=== PATIENT | female | born 1970 | race Caucasian/White ===

== ENCOUNTER 2020-06-17 08:12 | Inpatient (IN) | payer BC ==
[~2020-06-17 08:12] MED LIST: Bupivacaine 0.5%/EPINEPHrine 1:200,000 50 ML MDV ONE
[2020-06-17] MEDS ORDERED: Acetaminophen 500 MG Tab PO ONE (08:19)
[2020-06-17] MEDS ORDERED: Scopolamine 1.5 MG Transdermal Patch TRDERM SCH (08:20)
[2020-06-17] MEDS ORDERED: Neostigmine Methylsulfate 1 MG/ML 5 ML Syringe ONE (08:56)
[2020-06-17] MEDS ORDERED: Ondansetron 4 MG/2 ML SDV ONE (08:56)
[2020-06-17] MEDS ORDERED: Succinylcholine 200 MG/10 ML MDV ONE (08:56)
[2020-06-17] MEDS ORDERED: fentaNYL 250 MCG/5 ML SDV ONE ×2 (08:56→11:20)
[2020-06-17] MEDS ORDERED: Rocuronium 50 MG/5 ML Vial ONE (08:56)
[2020-06-17] MEDS ORDERED: Dexamethasone 4 MG/ML SDV ONE (08:56)
[2020-06-17] MEDS ORDERED: Glycopyrrolate 0.2 MG/ML 5 ML MDV ONE (08:56)
[2020-06-17] MEDS ORDERED: Propofol 200 MG/20 ML SDV ONE (08:56)
[2020-06-17] MEDS ORDERED: Celecoxib 200 MG Cap PO ONE (09:00)
[2020-06-17] MEDS: Dextrose 5%-Lactated Ringers 1,000 ML IV SCH ×3 (09:27→14:54)
[2020-06-17] MEDS: cefOXitin 2 GM Vial ONE ×2 (09:52→11:56)
[2020-06-17] MEDS ORDERED: cefOXitin 2 GM in Sodium Chloride 0.9% 50 ML IV ONE (10:00)
[2020-06-17] MEDS ORDERED: Lactated Ringers 1,000 ML ONE (10:24)
[2020-06-17] MEDS ORDERED: Ketamine 50 MG in Sodium Chloride 0.9% 49.5 ML IV SCH (10:30)
[2020-06-17] MEDS ORDERED: Magnesium Sulfate 3 GM in Sodium Chloride 0.9% 100 ML IV SCH (10:30)
[2020-06-17] MEDS ORDERED: Ketamine 500 MG/5 ML MDV IV SCH (10:30)
[2020-06-17] MEDS ORDERED: Labetalol 20 MG/4 ML Syringe ONE (11:50)
[2020-06-17] MEDS ORDERED: Naloxone 0.4 MG/ML SDV ONE (12:22)
[2020-06-17] MEDS ORDERED: Albuterol/Ipratropium 3.0-0.5 MG/3 ML Neb Soln NEB ONE (12:24)
[2020-06-17] MEDS ORDERED: hydrOXYzine HCL 100 MG/2 ML SDV IM ONE (12:29)
[2020-06-17] MEDS ORDERED: fentaNYL 100 MCG/2 ML SDV IVPUSH ONE ×2 (12:29→12:57)
[2020-06-17] MEDS ORDERED: Midazolam 1 MG/ML 2 ML SDV IVPUSH ONE (13:35)
[2020-06-17] MEDS ORDERED: Calcium Gluconate 10% 1 GM/10 ML SDV IVPUSH PRN (15:00)
[2020-06-17] MEDS ORDERED: Labetalol 20 MG/4 ML Syringe IVPUSH PRN (15:00)
[2020-06-17] MEDS ORDERED: hydrOXYzine HCL 100 MG/2 ML SDV IM PRN (15:00)
[2020-06-17] MEDS ORDERED: 50% Dextrose in Water 50 ML Syringe IVPUSH PRN (15:00)
[2020-06-17] MEDS ORDERED: Glucagon,Human Recombinant 1 MG Vial IM PRN (15:00)
[2020-06-17] MEDS ORDERED: Ondansetron 4 MG/2 ML SDV IVPUSH PRN (15:00)
[2020-06-17] MEDS ORDERED: Acetaminophen 500 MG Tab PO PRN (15:00)
[2020-06-17] MEDS ORDERED: Metoclopramide 10 MG/2 ML SDV IVPUSH PRN (15:00)
[2020-06-17] MEDS ORDERED: Insulin Lispro 100 Unit/ML 3 ML KwikPen SUBCUT PRN (15:00)
[2020-06-17] MEDS ORDERED: Albuterol/Ipratropium 3.0-0.5 MG/3 ML Neb Soln INH PRN (15:00)
[2020-06-17] MEDS ORDERED: HYDROmorphone 0.5 MG/0.5 ML Syringe IVPUSH PRN (15:00)
[2020-06-17] MEDS: Albuterol/Ipratropium 3.0-0.5 MG/3 ML Neb Soln INH SCH ×2 (15:09→20:28)
[2020-06-17] MEDS: HYDROmorphone 1 MG/ML Syringe IV PRN ×3 (15:35→23:19)
[2020-06-17] MEDS ORDERED: MVI, Adult with Vitamin K 10 ML, Thiamine 200 MG, Chromium/Copper/Mang/Selen/Zn 1 ML in... IV SCH ×4 (16:00)
[2020-06-17] MEDS ORDERED: Pantoprazole 40 MG Vial IVPUSH SCH (16:00)
[2020-06-17] MEDS: cefOXitin 2 GM in Sodium Chloride 0.9% 50 ML IV SCH ×2 (16:48→21:14)
[2020-06-17] MEDS: Acetaminophen 500 MG Tab PO SCH (16:51)
[2020-06-17] MEDS: Docusate Sodium 100 MG Cap PO SCH (20:27)
[2020-06-17] MEDS: Heparin Sodium 5,000 Units/ML Vial SUBCUT SCH (20:28)
[2020-06-18] MEDS: Dextrose 5%-Lactated Ringers 1,000 ML IV SCH ×3 (00:02→14:13)
[2020-06-18] MEDS: Acetaminophen 500 MG Tab PO SCH ×3 (00:02→15:55)
[2020-06-18] MEDS ORDERED: Iopamidol 612 MG/ML 50 ML SDV PO ONE (02:19)
[2020-06-18] MEDS: HYDROmorphone 1 MG/ML Syringe IV PRN (03:48)
[2020-06-18] MEDS: cefOXitin 2 GM in Sodium Chloride 0.9% 50 ML IV SCH (03:52)
[2020-06-18] MEDS ORDERED: Ondansetron 4 MG Tab.DIS PO PRN (07:26)
[2020-06-18] MEDS ORDERED: Benzocaine/Cetylpyridinium/Menthol Lozenge MUCMEM PRN (07:29)
[2020-06-18] MEDS ORDERED: hydrOXYzine HCl 25 MG Tab PO PRN (07:29)
[2020-06-18] MEDS ORDERED: Albuterol 8 GM Inhaler INH PRN (07:30)
[2020-06-18] MEDS ORDERED: SUMAtriptan 50 MG Tab PO PRN (07:30)
[2020-06-18] MEDS: Albuterol/Ipratropium 3.0-0.5 MG/3 ML Neb Soln INH SCH ×4 (07:36→20:21)
[2020-06-18] MEDS: oxyCODONE 5 MG Tab PO PRN (07:57)
[2020-06-18] MEDS: Heparin Sodium 5,000 Units/ML Vial SUBCUT SCH ×2 (08:01→20:18)
[2020-06-18] MEDS: Loratadine 10 MG Tab PO SCH (08:02)
[2020-06-18] MEDS: Docusate Sodium 100 MG Cap PO SCH ×2 (08:02→20:21)
[2020-06-18] MEDS: FLUoxetine 20 MG Cap PO SCH (08:02)
[2020-06-18] MEDS: Celecoxib 200 MG Cap PO SCH ×2 (08:02→20:21)
[2020-06-18] MEDS: SCOPOLAMINE PATCH CHECK TOP SCH (08:03)
--- NOTE | 2020-06-18 08:57 | PN ---
DATE OF SERVICE: 06/18/2020 SUBJECTIVE: Martha reports her pain is controlled. She has received 2 doses of IV Dilaudid. Reports of severe sore throat thought to be from intubation. Blood sugars have been 194, 207, 133 and 145. Upper GI this morning was normal. Oral intake 180. Urine output recorded was 200. MILLER drain put out 190 of a light red drainage. REVIEW OF SYSTEMS: Remainder of review of systems negative for any pertinent positives and negatives. OBJECTIVE: GENERAL: Martha Perez is a pleasant 50-year-old female, alert and orientated. VITAL SIGNS: TPR at 0521 is 98.9, 93, 18. Blood pressure 116/82. HEENT: Negative. NECK: Supple. HEART: Regular rate and rhythm. LUNGS: Clear. ABDOMEN: Abdominal binder is on. Dressings dry and intact. MILLER drain as above. EXTREMITIES: SCDs are on and there is no peripheral edema. ASSESSMENT: Laparoscopic sleeve gastrectomy, liver biopsy, repair of diaphragmatic hernia with mesh and excision of mediastinal lipoma for morbid obesity, hepatomegaly, large paraesophageal diaphragmatic hernia, and mediastinal lipoma. PLAN: 1. Cepacol lozenges at bedside 1 every 2 hours p.r.n. sore throat. 2. Decrease IV to 100 mL per hour at 1400. 3. Step 2 gastric bypass diet with no cereal. 4. May shower. 5. 3 med cups at bedside to drink 1 every 20 minutes or 3 per hour and record. 6. Discontinue Accu-Cheks. 7. Atarax 25 mg p.o. q.4 hours p.r.n. pain. 8. Prozac 40 mg p.o. daily. 9. Claritin 10 mg p.o. daily. 10.Imitrex 50 mg p.o. daily p.r.n. migraine headache. 11.Continue use of incentive spirometer. 12.We will evaluate p.r.n. or in a.m. Peri De Guzman PA-C /[id number]
--- NOTE | 2020-06-18 08:59 | CR ---
[facility] HISTORY: Postbariatric surgery FINDINGS: Patient swallowed water-soluble contrast. Upright views of the abdomen show no evidence of extravasation or obstruction. There is a surgical drain in the left upper quadrant. IMPRESSION: Status post bariatric surgery No extravasation or obstruction seen
[2020-06-18] MEDS ORDERED: FLUoxetine 20 MG Cap PO SCH (09:00)
[2020-06-18] MEDS ORDERED: Non-Formulary Medication 1 Each (Loratadine [Claritin] 10 MG) PO SCH (09:00)
[2020-06-18] MEDS: Cyclobenzaprine 10 MG Tab PO PRN (09:08)
[2020-06-18 11:00] LABS: HEMOGLOBIN A1C 5.5 % (4.5-6.2)
[2020-06-18] MEDS ORDERED: Lidocaine 2% Viscous Solution 15 ML Cup PO PRN (11:11)
[2020-06-18] MEDS: HYDROmorphone 0.5 MG/0.5 ML Syringe IVPUSH PRN ×3 (11:17→17:22)
[2020-06-18] MEDS: Pantoprazole 40 MG Delayed-Release Granules 1 Packet PO SCH (15:54)
[2020-06-18] MEDS: MVI, Adult with Vitamin K 10 ML, Thiamine 200 MG, Chromium/Copper/Mang/Selen/Zn 1 ML in... IV SCH ×4 (15:54)
[2020-06-18] MEDS: diphenhydrAMINE 50 MG/ML SDV IVPUSH PRN (20:17)
[2020-06-18] MEDS: HYDROmorphone 1 MG/ML Syringe IVPUSH PRN ×2 (20:17→23:22)
[2020-06-19] MEDS: Acetaminophen 500 MG Tab PO SCH ×3 (00:07→15:45)
[2020-06-19] MEDS: diphenhydrAMINE 50 MG/ML SDV IVPUSH PRN ×2 (01:54→21:15)
[2020-06-19] MEDS: HYDROmorphone 0.5 MG/0.5 ML Syringe IVPUSH PRN ×2 (04:00→07:29)
[2020-06-19] MEDS ORDERED: methylPREDNISolone Sod Succ 60 MG in Dextrose 5% in Water 100 ML IV SCH ×2 (07:15)
[2020-06-19] MEDS: Sodium Chloride 0.9% Inhalation Soln 3 ML Neb INH PRN ×2 (07:22→13:02)
[2020-06-19] MEDS: Racepinephrine 2.25% 0.5 ML Neb Soln NEB SCH ×3 (07:22→19:13)
[2020-06-19] MEDS: Heparin Sodium 5,000 Units/ML Vial SUBCUT SCH ×2 (07:56→20:21)
[2020-06-19] MEDS: Albuterol/Ipratropium 3.0-0.5 MG/3 ML Neb Soln INH SCH ×4 (08:05→20:20)
[2020-06-19] MEDS: methylPREDNISolone Sodium Succinate 125 MG/2 ML SDV IVPUSH SCH ×2 (08:17→16:04)
[2020-06-19] MEDS ORDERED: Cyanocobalamin (Vitamin B12) 1,000 MCG/ML SDV IM ONE (09:00)
[2020-06-19] MEDS: HYDROmorphone 1 MG/ML Syringe IVPUSH PRN ×3 (10:11→18:44)
--- NOTE | 2020-06-19 10:31 | PN ---
DATE OF SERVICE: 06/19/2020 SUBJECTIVE: Martha Perez is postoperative day #2 following a sleeve gastrectomy. She continues to have a severe sore throat. Viscous lidocaine and the Cepacol lozenges are not helping. Afebrile. She feels the sore throat is from intubation. Oral intake was 560. Urine output 1250. She had 150 emesis. REVIEW OF SYSTEMS: Remainder of review of systems negative for any pertinent positives and negatives. OBJECTIVE: GENERAL: Martha Perez is a pleasant 50-year-old female. She is lying in bed comfortably. VITAL SIGNS: TPR at 0155 is 98.9, 96, 18. Blood pressure 116/66. HEENT: Negative. NECK: Supple. HEART: Regular rate and rhythm. LUNGS: Clear. ABDOMEN: Dressings dry and intact. Abdominal binder is on. EXTREMITIES: Without peripheral edema. ASSESSMENT: Laparoscopic sleeve gastrectomy, liver biopsy, repair of diaphragmatic hernia with mesh and excision of mediastinal lipoma for morbid obesity, hepatomegaly, large paraesophageal diaphragmatic hernia, and mediastinal lipoma. Date of surgery: 06/17/2020. Surgeon: Rishabh Rich MD. PLAN: 1. Racemic epinephrine nebs q.i.d. scheduled. 2. Solu-Medrol 60 mg IV q.8 hours scheduled. 3. Continue to use viscous lidocaine and fluids encouraged. 4. We will evaluate p.r.n. or in a.m. Peri De Guzman PA-C /[id number]
[2020-06-19] MEDS: SCOPOLAMINE PATCH CHECK TOP SCH (11:47)
[2020-06-19] MEDS: Docusate Sodium 100 MG Cap PO SCH ×2 (11:47→20:07)
[2020-06-19] MEDS: Celecoxib 200 MG Cap PO SCH ×2 (11:47→20:07)
[2020-06-19] MEDS: Loratadine 10 MG Tab PO SCH (11:47)
[2020-06-19] MEDS: FLUoxetine 20 MG Cap PO SCH (11:48)
[2020-06-19] MEDS: Dextrose 5%-Lactated Ringers 1,000 ML IV SCH (12:59)
[2020-06-19] MEDS: Pantoprazole 40 MG Delayed-Release Granules 1 Packet PO SCH (15:45)
[2020-06-19] MEDS: MVI, Adult with Vitamin K 10 ML, Thiamine 200 MG, Chromium/Copper/Mang/Selen/Zn 1 ML in... IV SCH ×4 (17:59)
[2020-06-19] MEDS ORDERED: LORazepam 2 MG/ML SDV IVPUSH PRN (21:19)
--- NOTE | 2020-06-19 22:55 | OR ---
DATE OF PROCEDURE: 06/17/2020 SURGEON: Rishabh Rich MD PREOPERATIVE DIAGNOSIS: Morbid obesity. POSTOPERATIVE DIAGNOSES: 1. Morbid obesity. 2. Marked hepatomegaly. 3. Paraesophageal diaphragmatic hernia. 4. Mediastinal lipoma. OPERATIVE PROCEDURES: Diagnostic laparoscopy with: 1. Laparoscopic sleeve gastrectomy (81209). 2. Miguel-Cut needle liver biopsy (29973). 3. Repair of paraesophageal diaphragmatic hernia with mesh (34116). 4. Excision of mediastinal lipoma (80806). ANESTHESIA: General. DIALYSIS TECHNICIAN: Peri De Guzman PA-C INDICATION FOR PROCEDURE: This is a 50-year-old female presenting with longstanding morbid obesity and increasingly significant comorbidities. After preoperative evaluation and discussion, she wished to proceed with a sleeve gastrectomy. Potential risks of the procedure including bleeding, infection, leaks from the various staple lines, as well as possibility of cardiopulmonary, septic, or hemorrhagic complications leading to were discussed, and the patient wishes to proceed. DETAILS OF PROCEDURE: The patient was taken to the operating room and placed in a supine position. After general endotracheal anesthesia was induced, she converted to a lithotomy position and the abdomen prepped and draped. At 15 cm inferior and 5 cm left of the xiphoid process transverse incision was made and peritoneal cavity entered under direct vision with an Optiview trocar, inflated to 15 mmHg pressure with CO2. Laparoscope was inserted. No underlying trocar insertion site injuries were seen. Bilateral transversus abdominis plane blocks were then placed. Five additional trocars were placed across the upper mid abdomen and general exploration undertaken. The patient was noted to have marked hepatomegaly with liver volume being roughly 2 to 3 times normal with the liver grossly fatty infiltrated. Miguel-Cut needle biopsies were obtained from left lobe of liver. Minimal bleeding from the biopsy sites was controlled with electrocautery. As the liver was retracted anteriorly, the patient was noted to have a large hernia sac with paraesophageal component to it with prolapse of some omentum, as well as perigastric fat and gastric fundus in a plane anterior to the course of the esophagus. This was reduced and the peritoneum overlying incised and reflected downward. The crura were then dissected from distal esophagus down to the level of esophagogastric junction. On each side, a retroesophageal window was constructed. Posterior crural repair was then accomplished with 0 Ethibond sutures, and this was felt to be best reinforced with a mesh-type augmentation of the crural repair. A Phasix ST mesh was then cut in a small horseshoe type configuration and placed posterior to the esophagus onto the crural repair and affixed to the crura on each side with some titanium tacking screws. During the course of the dissection, a mediastinal lipoma was encountered, and this was excised to facilitate more adequate closure of the diaphragmatic hernia. At this point, the omentum was divided away from the greater curvature of the stomach, beginning in the midportion of the greater curvature and then extending proximally across the short gastric vessels including the highest and posterior short gastric vessels. The left ruthie was then skeletonized to avoid a cul-de-sac of stomach being left in that area. The dissection then continued with division of the omentum down to the level 2 cm proximal to the pylorus. The port from the gastrectomy staple line was then mapped out across the antrum, beginning 2 cm proximal to the pylorus, and underneath the incisura angularis with care taken to avoid overtightening of that area so as to avoid obstruction at that level. The first 3 firings were reinforced with BROOKE black loads. A 32-Greek suction catheter was then placed per Anesthesia orally and then positioned across the lesser curvature and suction applied. The remainder of the gastrectomy was then completed with a combination of reinforced black and purple loads, and at that point, the gastrectomy staple line appeared to be satisfactorily constructed. Fibrin sealant was then placed across the entire staple line by focusing primarily on the area of esophagogastric junction. Omentum was then sutured up into that area as well. The catheter in the stomach was now taken off suction, and with the gastrectomy staple line being submerged with antibiotic-containing saline solution, air was injected distending the stomach. No bleeding or air leaks were seen, and the catheter was then withdrawn. Single Zak-Head drain was then taken through the left lateral trocar site, after removal of the gastric specimen, and the fascia at the left lateral trocar site, which had been widened, was closed with some 0 Vicryl stitch, and at that point, the remaining trocars were removed and peritoneal cavity deflated. Incisions were closed with some 4-0 Vicryl skin stitch. Dressing applied. The patient was taken to the recovery room in satisfactory condition. Physician nurse practitioner physicians assistant, Peri De Guzman, played an essential role in assisting in this case, helping to position the patient, retract structures as needed, as well as suturing and cutting sutures when indicated. Her presence improved the patient's safety and decreased operative time. Rishabh Rich MD /[id number]
[2020-06-20] MEDS: Acetaminophen 500 MG Tab PO SCH ×4 (00:06→23:20)
[2020-06-20] MEDS: HYDROmorphone 1 MG/ML Syringe IVPUSH PRN (00:06)
[2020-06-20] MEDS: methylPREDNISolone Sodium Succinate 125 MG/2 ML SDV IVPUSH SCH ×3 (00:06→15:08)
[2020-06-20] MEDS: Racepinephrine 2.25% 0.5 ML Neb Soln NEB SCH ×4 (00:58→20:02)
[2020-06-20] MEDS: Dextrose 5%-Lactated Ringers 1,000 ML IV SCH (03:54)
[2020-06-20] MEDS: Albuterol/Ipratropium 3.0-0.5 MG/3 ML Neb Soln INH SCH ×4 (07:04→21:10)
[2020-06-20] MEDS: HYDROmorphone 0.5 MG/0.5 ML Syringe IVPUSH PRN (07:47)
[2020-06-20] MEDS: Celecoxib 200 MG Cap PO SCH ×2 (08:04→21:14)
[2020-06-20] MEDS: Loratadine 10 MG Tab PO SCH (08:04)
[2020-06-20] MEDS: Docusate Sodium 100 MG Cap PO SCH ×2 (08:16→21:14)
[2020-06-20] MEDS: FLUoxetine 20 MG Cap PO SCH (08:34)
[2020-06-20] MEDS: Heparin Sodium 5,000 Units/ML Vial SUBCUT SCH ×2 (08:37→20:06)
[2020-06-20] MEDS ORDERED: Magnesium Hydroxide 400 MG/5 ML Susp 30 ML Cup PO ONE (09:00)
[2020-06-20] MEDS ORDERED: Bisacodyl 5 MG Tab PO ONE (10:00)
[2020-06-20] MEDS: oxyCODONE 5 MG Tab PO PRN ×3 (10:33→23:18)
--- NOTE | 2020-06-20 10:45 | PN ---
DATE OF SERVICE: 06/20/2020 SUBJECTIVE: Martha states this morning she feels a little bit better. She has had a couple of sips of water, and that did go down better. Has been afebrile. Oral intake 0. No emesis. Urine output 1999. MILLER drain was 80. She did start the IV Solu-Medrol and the racepinephrine nebs yesterday, and it did not make a difference. She has been with the severe swollen sore throat. REVIEW OF SYSTEMS: Remainder of review of systems negative for any pertinent positives and negatives. OBJECTIVE: GENERAL: Martha Perez is a pleasant 50-year-old female. She is alert, orientated. Does look like she feels better this morning. VITAL SIGNS: TPR 98.4; 92; 18; blood pressure 135/65. HEENT: Negative. NECK: Supple. HEART: Regular rate and rhythm. LUNGS: Clear. ABDOMEN: Dressings dry and intact. Abdominal binder is on. EXTREMITIES: Without peripheral edema. ASSESSMENT: 1. Dysphagia secondary to intubation with laryngeal spasms immediately postop. 2. Laparoscopic sleeve gastrectomy, liver biopsy, repair of diaphragmatic hernia with mesh and excision of mediastinal lipoma for morbid obesity, hepatomegaly, large paraesophageal diaphragmatic hernia, mediastinal lipoma. Date of surgery: 06/17/2020. Surgeon: Rishabh Rich MD. PLAN: 1. Step 2 gastric bypass diet with no cereal. 2. Discontinue MILLER drain. 3. Continue Solu-Medrol IV. 4. We will evaluate p.r.n. or in a.m. Peri De Guzman PA-C /[id number]
[2020-06-20] MEDS: MVI, Adult with Vitamin K 10 ML, Thiamine 200 MG, Chromium/Copper/Mang/Selen/Zn 1 ML in... IV SCH ×8 (12:54→15:01)
[2020-06-20] MEDS: Sodium Chloride 0.9% Inhalation Soln 3 ML Neb INH PRN (13:11)
[2020-06-20] MEDS: Pantoprazole 40 MG Delayed-Release Granules 1 Packet PO SCH (15:08)
[2020-06-20] MEDS: diphenhydrAMINE 50 MG/ML SDV IVPUSH PRN (21:14)
[2020-06-20] MEDS ORDERED: Ondansetron 4 MG Tab.DIS PO PRN (23:28)
[2020-06-20] MEDS ORDERED: Metoclopramide 10 MG Tab PO PRN (23:29)
[2020-06-20] MEDS ORDERED: diphenhydrAMINE 25 MG Cap PO PRN (23:30)
[2020-06-21] MEDS: Racepinephrine 2.25% 0.5 ML Neb Soln NEB SCH ×2 (02:01→07:08)
[2020-06-21] MEDS: Albuterol/Ipratropium 3.0-0.5 MG/3 ML Neb Soln INH SCH ×2 (07:06→10:49)
[2020-06-21] MEDS: Acetaminophen 500 MG Tab PO SCH (07:50)
[2020-06-21] MEDS: oxyCODONE 5 MG Tab PO PRN (07:50)
[2020-06-21] MEDS ORDERED: FLU VACC QS2020-21(6MOS UP)/PF 60 MCG/0.5 ML SYRINGE IM ONE (09:00)
[2020-06-21] MEDS: Docusate Sodium 100 MG Cap PO SCH (09:10)
[2020-06-21] MEDS: Heparin Sodium 5,000 Units/ML Vial SUBCUT SCH (09:10)
[2020-06-21] MEDS: Celecoxib 200 MG Cap PO SCH (09:10)
[2020-06-21] MEDS: Loratadine 10 MG Tab PO SCH (09:10)
[2020-06-21] MEDS: FLUoxetine 20 MG Cap PO SCH (09:10)
[2020-06-21] MEDS: Cyclobenzaprine 10 MG Tab PO PRN (11:32)
--- NOTE | 2020-06-22 00:05 | DISCH ---
ADMISSION DIAGNOSES: 1. Morbid obesity, BMI 36. 2. Restless legs syndrome. 3. Asthma. DISCHARGE DIAGNOSES: 1. Laparoscopic sleeve gastrectomy. 2. Miguel-Cut needle liver biopsy. 3. Repair of paraesophageal diaphragmatic hernia with mesh. 4. Excision of mediastinal lipoma. POSTOPERATIVE DIAGNOSES: 1. Morbid obesity. 2. Marked hepatomegaly. 3. Paraesophageal diaphragmatic hernia. 4. Mediastinal lipoma. 5. Dysphagia secondary to intubation with laryngeal spasms immediately postop. HISTORY: Martha is a pleasant 50-year-old female with history of morbid obesity and increasing comorbidities. After preoperative evaluation and discussion of possible risks and possible complications, she wished to proceed with surgical procedure. HOSPITAL COURSE: Martha had her surgery on 06/17/2020. She had no operative complications with the exception she had some laryngeal spasms immediately postop. Her upper GI on postoperative day 1 was normal. She received dietary instruction. She had difficulty swallowing and sore throat from the intubation that increasingly became more bothersome and painful. She was started on postoperative day 2 with racemic epinephrine nebs q.i.d., Solu- Medrol 60 mg IV every 8 hours. She could continue with the viscous lidocaine and ice chips. On 06/20/2020, Martha was able to take in more liquids. She was advanced to a step 2 gastric bypass diet with no cereal. MILLER drain was discontinued. On postoperative day 3, she was able to be discharged to home. Afebrile. Oral intake adequate at 1320. Urine output was 3150. She received adequate dietary instruction and had a B12 1000 mcg IM injection prior to discharge. Martha was discharged with no complications. PHYSICAL EXAMINATION: GENERAL: Martha Perez is a 50-year-old female. VITAL SIGNS: Height is 5 feet 7 inches, weight is 233 pounds. BMI is 36. TPR: 97.2, 77, 18. Blood pressure 114/59. HEENT: Negative. NECK: Supple. HEART: Regular rate and rhythm. LUNGS: Clear. ABDOMEN: Trocar incisions sites healing well. Sutures intact. Abdominal binder is on. EXTREMITIES: Without peripheral edema. DISPOSITION: Discharged to home. CONDITION: Stable and improving. FOLLOWUP APPOINTMENT: With Peri De Guzman PA-C, at [facility] [place], [place] on 06/25/2020 at 2:15 p.m. HOME MEDICATIONS: 1. Celebrex 200 mg p.o. b.i.d., #28. 2. Oxycodone 5 mg q.6 hours p.r.n. pain, #28. 3. Tylenol Extra Strength 1000 mg every 8 hours p.r.n. pain. 4. Zofran ODT 4 mg every 4 hours p.r.n. nausea, #30. She is to resume home medications of Prozac 40 mg daily, Claritin 10 mg oral daily, omeprazole 20 mg oral daily, Imitrex 50 mg oral daily p.r.n. migraine headaches. Instructed to discontinue taking vitamins and supplements until after first postop appointment. DIET: Step 2 gastric bypass diet with no cereal for 30 days until 07/16/2020. Drink 8 to 10 glasses of water a day and 65 g of protein. ACTIVITY: No lifting over 10 pounds for 2 weeks. Other activity: Walk at least 6 times daily inside your home. Driving: Do not drive for 1 week and while on pain medication. Shower/bathing: May shower. DISCHARGE INSTRUCTIONS: Notify provider if any fever, increased pain, nausea, or vomiting. Keep site clean and dry. Wear abdominal binder for 6 weeks and use incentive spirometer 10 times every hour while awake.
== END 2020-06-21 11:40 | disposition home or self-care (01) | DRG 403 ==
LOC: JP.SDS 08:12 → JP.SDSSCHI 08:12 → EDSTATUS 08:15 → JP.2SS 12:15
PROVIDERS: ADMIT Surgery; ATTEND Surgery
PROC: 0DB64Z3 Excision of Stomach, Percutaneous Endoscopic Approach, Vertical (ICD-10-PCS; principal; 2020-06-17)
PROC: 0FB24ZX Excision of Left Lobe Liver, Percutaneous Endoscopic Approach, Diagnostic (ICD-10-PCS; 2020-06-17)
PROC: 0BUT4JZ Supplement Diaphragm with Synthetic Substitute, Percutaneous Endoscopic Approach (ICD-10-PCS; 2020-06-17)
PROC: 0JB63ZZ Excision of Chest Subcutaneous Tissue and Fascia, Percutaneous Approach (ICD-10-PCS; 2020-06-17)
DX: E66.01 Morbid (severe) obesity due to excess calories (principal); G25.81 Restless legs syndrome; J45.909 Unspecified asthma, uncomplicated; R16.0 Hepatomegaly, not elsewhere classified; K44.9 Diaphragmatic hernia without obstruction or gangrene; D17.1 Benign lipomatous neoplasm of skin and subcutaneous tissue of trunk; R13.10 Dysphagia, unspecified; Z68.36 Body mass index [BMI] 36.0-36.9, adult; Z79.899 Other long term (current) drug therapy
CPT/HCPCS: 36415; 74240; 74240-26; 80053; 82962; 83036; 83735; 83880; 84100; 85025; 86850; 86900; 86901; 88304; 88307; 88313; 94640; 94762; A9270-GY; C1713; C1781; C9113; J0171; J0330; J0694; J1100; J1170; J1200; J1644; J1815; J2250; J2310; J2405; J2704; J2710; J2795; J2930; J3010; J3410; J3411; J3420; J3475; J3490; J7030; J7050; J7120; J7121; J7620-GY; Q9967

== ENCOUNTER 2020-10-14 06:54 | Day surgery (SDC) | payer BC ==
[2020-10-14] MEDS ORDERED: Lactated Ringers 1,000 ML IV SCH (07:30)
[2020-10-14] MEDS ORDERED: fentaNYL 100 MCG/2 ML SDV ONE (07:56)
[2020-10-14] MEDS ORDERED: Midazolam 1 MG/ML 2 ML SDV ONE (07:56)
[2020-10-14] MEDS ORDERED: Propofol 200 MG/20 ML SDV ONE (07:56)
[2020-10-14] MEDS ORDERED: Ondansetron 4 MG/2 ML SDV ONE (07:58)
[2020-10-14] MEDS ORDERED: Cyanocobalamin (Vitamin B12) 1,000 MCG/ML SDV IM ONE (08:00)
[2020-10-14] MEDS ORDERED: Glycopyrrolate 0.2 MG/ML 2 ML SDV IVPUSH ONE (08:15)
[2020-10-14] MEDS ORDERED: Pantoprazole 40 MG Vial IVPUSH ONE (08:52)
[2020-10-14] MEDS ORDERED: MVI, Adult with Vitamin K 10 ML, Thiamine 200 MG, Chromium/Copper/Mang/Selen/Zn 1 ML in... IV ONE ×4 (09:00)
--- NOTE | 2020-10-26 10:45 | OR ---
DATE OF PROCEDURE: 10/14/2020 SURGEON: Rishabh Rich MD PREOPERATIVE DIAGNOSES: Dysphagia and vomiting, status post sleeve gastrectomy. POSTOPERATIVE DIAGNOSIS: Status post sleeve gastrectomy with erosive esophagitis. OPERATIVE PROCEDURES: 1. Esophagogastroduodenoscopy (no biopsies obtained secondary to patient developing laryngeal spasm). 2. Upper gastrointestinal endoscopy. ANESTHESIA: IV sedation. INDICATIONS FOR PROCEDURE: This is a 50-year-old female status post sleeve gastrectomy on 06/17/2020 presents now with some dysphagia referable to distal esophagus along with intermittent vomiting, presently is on omeprazole 20 mg daily. Plan is to proceed with an upper GI endoscopy with biopsies as indicated. Potential risks of the procedure including bleeding and perforation were discussed, and the patient wishes to proceed. DETAILS OF PROCEDURE: The patient was taken to the operating room and placed in a left lateral decubitus position. IV sedation was administered after which the upper GI endoscope was passed orally through the length of esophagus, into the stomach, and through there into the pyloric sphincter and the proximal duodenum. Findings included some active erosive esophagitis. This was not associated with any stricturing or active bleeding. The remainder of the sleeve gastrectomy, pyloric channel, and proximal duodenum were unremarkable. At this point, the patient developed quite a bit in the way of laryngeal spasm, and we felt it best to conclude the procedure, and no biopsies were obtained. The patient was taken subsequently to the recovery room in satisfactory condition. Plan, at this point, we will give the patient Protonix 40 mg IV in the recovery room and then switch it over from omeprazole to Protonix 40 mg daily. She will be following up with Peri De Guzman PA-C, in [facility] in 1 month. Rishabh Rich MD /[id number]
== END 2020-10-14 10:25 | disposition home or self-care (01) ==
LOC: JP.SDS 06:54
PROVIDERS: ATTEND Surgery
DX: K22.10 Ulcer of esophagus without bleeding (principal); R11.10 Vomiting, unspecified; J38.5 Laryngeal spasm; R13.10 Dysphagia, unspecified; E66.01 Morbid (severe) obesity due to excess calories; Z68.30 Body mass index [BMI] 30.0-30.9, adult
CPT/HCPCS: 43235; C9113; J2250; J2405; J2704; J3010; J3411; J3420; J3490; J7120